=== PATIENT | male | born 1975 | race Caucasian/White ===

== ENCOUNTER 2017-06-16 15:23 | Observation (INO) ==
[2017-06-16] MEDS ORDERED: Ondansetron 4 MG/2 ML VIAL IVP PRN (19:34)
[2017-06-16] MEDS: 0.9 % Sodium Chloride 1,000 ML IVC SCH (20:09)
[2017-06-16] MEDS: *HR* OxyCODONE/APAP 5/325 TABLET PO PRN (20:09)
[2017-06-16] MEDS: *HR* FentaNYL (PF) 100 MCG/2 ML VIAL IVP PRN (22:15)
[2017-06-17] MEDS: *HR* OxyCODONE/APAP 5/325 TABLET PO PRN ×3 (03:05→20:02)
[2017-06-17] MEDS: *HR* FentaNYL (PF) 100 MCG/2 ML VIAL IVP PRN ×2 (08:55→13:52)
[2017-06-17] MEDS: 0.9 % Sodium Chloride 1,000 ML IVC SCH (08:59)
--- NOTE | 2017-06-17 09:17 | General Surg History&Physical ---
Date of Encounter: 06/17/17 Time of Encounter: 09:00 Assessment and Plan (1) Biliary dyskinesia Current Visit: Yes Status: Acute The assessment and plan as outlined above was discussed with the patient and/or family members who expressed understanding and agreement. All questions were answered. NPO IV fluids Supportive care and pain control Risks, benefits, alternatives, expected outcomes were reviewed with the patient is in agreement to proceed to the operating room for a laparoscopic cholecystectomy with cholangiogram with Dr. Solorzano in the next 24 hours. PPI therapy daily Incentive spirometer every 1 hour while awake Ambulate hallways TID with assistance DVT prophylaxis- EPCDs to bilateral lower extremities History of Present Illness Chief complaint: RUQ abdominal pain with vomiting HPI: Mr. Wang is a 41 year old male who reports right upper quadrant abdominal pain for approximately the last 2 weeks. The pain is aching and sharp in nature and radiates into his back. He admits to feeling bloated. He reports nausea and vomiting. He also admits to diarrhea without melena or hematochezia. The pain is aggravated by greasy and spicy foods. He states the pain is more intense after eating. He was seen and evaluated by Dr. Solorzano in the outpatient surgical office yesterday and has been admitted for further workup and treatment. The patient admits that he has been seen and evaluated at [facility] on 3 different occasions for the symptoms which have been ongoing since 06/09/2017. Past Med Surg Social Fam HX - Past Medical History Source: patient, old records reviewed Medical history: no medical history Psychiatric history: no psych history, PTSD - Past Surgical History Surgical History: appendectomy, other (Tonsillectomy and adenoidectomy, reconstruction surgery to his face due to an accident) - Social History Smoking Status: Current every day smoker Packs per day: 0.5 Smokeless Tobacco Status: No Alcohol use: none Drug use: none Current living situation: Home - Independent Activity Level: Independent ambulation - Family History Mother Living Status: Still Living Hx Family Cardiac Disorders: Yes (HTN) Father Living Status: Still Living Hx Family Cardiac Disorders: Yes (HTN) Medications and Allergies amLODIPine [Norvasc] 5 mg PO DAILY #30 tablet 04/02/15 [Rx] 3 Allergy/AdvReac Type Severity Reaction Status Date / Time aspirin [ASA] Allergy Seizure Verified 06/15/17 19:47 morphine Allergy Hives Verified 06/15/17 19:47 Review of Systems All systems PM: reviewed and no additional remarkable complaints except as stated (in the HPI) All systems PM: The remainder of the systems were reviewed and are negative General Surgery Exam Initial Vital Signs Temp Pulse Resp BP Pulse Ox 99.0 F 75 16 122/89 95 06/16/17 17:04 06/16/17 17:04 06/16/17 17:04 06/16/17 17:04 06/16/17 17:04 - General physical appearance well developed, well nourished, moderate pain - Eyes normal ocular movement - ENT normal mucosa, atraumatic, normocephalic - Neck trachea midline - Respiratory normal respiratory effort, clear to auscultation - Cardiovascular Cardiovascular exam: Present: RRR - Abdomen Abdomen general surgery: Present: bowel sounds present, soft, tender Abdominal Tenderness: Present: RUQ - Integumentary Integumentary general surgery: Present: warm and dry - Neurologic Present: CN 2-12 grossly intact - Musculoskeletal Present: normal gait, normal posture - Psychiatric Psychiatric general surgery: Present: appropriate, oriented to person, oriented to place, oriented to time, speech is normal, memory intact Results - Labs All other labs normal. - Attending Attestation For this encounter, I have reviewed the COMPONENT INSPECTOR or PA documentation, treatment plan, and medical decision making; and I have had face to face time with this patient.
[2017-06-17] MEDS ORDERED: Naloxone 0.4 MG/ML INJ IVP PRN ×2 (09:23→18:02)
[2017-06-17] MEDS ORDERED: Isovue-300 50 ML VIAL IVP ONE (15:33)
--- NOTE | 2017-06-17 15:42 | Anesthesia Evaluation PreOp ---
Date of Encounter: 06/17/17 Time of Encounter: 15:40 - Past History Planned Operation: Lap. cholecystectomy Cardiac History: Denies any Significant Hx Pulmonary History: Smoker NEUROLOGY STROKE PHYSICIAN History: Denies Any Significant HX Other Medical History: Denies Any Significant HX Anesthesia History: No Prior Anesthetic Complications, Past Anesthesia (Tonsils , Appy, Facial reconstruction) Alcohol Use: none Drug use: none Medications and Allergies No Known Home Drugs 06/17/17 [History] 3 Allergy/AdvReac Type Severity Reaction Status Date / Time aspirin [ASA] Allergy Seizure Verified 06/15/17 19:47 morphine Allergy Hives Verified 06/15/17 19:47 - Meds/Allergy Pre-op Review Medications Reviewed: Yes Allergies Reviewed: Yes Beta Blockers on Current Med List: No Anesthesia Exam O2 Sat Height 1.93 m Weight 93 kg BMI 25 Vital Signs/O2 Sat, Most Current Temp Pulse Resp BP Pulse Ox 98.7 F 58 14 124/80 94 06/17/17 15:29 06/17/17 15:29 06/17/17 15:29 06/17/17 15:29 06/17/17 15:29 NPO (# of Hours): >8 - HEENT Mallampati: I Teeth: Normal - Cardiac Rhythm: Regular - Pulmonary Breath Sounds: bilateral Clear Anesthesia Assess/Plan ASA Score: 2 Modified Gala Scale for Level of Consciousness: Cooperative, oriented, and tranquil Anesthetic Plan: General Monitoring Plan: Standard Monitors Recovery Plan: PACU Anes Supervising Prov Stmt: Patient informed and consented. Risks, benefits, and alternatives discussed. Patient wishes to proceed.
[2017-06-17] MEDS ORDERED: *HR* FentaNYL (PF) 100 MCG/2 ML VIAL ONE ×3 (15:43→16:50)
[2017-06-17] MEDS ORDERED: *HR* Propofol 200 MG/20 ML VIAL IVP ONE ×2 (15:43→16:51)
[2017-06-17] MEDS ORDERED: *HR* Midazolam HCl 2 MG/2 ML VIAL ONE (15:43)
[2017-06-17] MEDS ORDERED: Lidocaine -MPF 2% 2 ML VIAL ONE (15:47)
[2017-06-17] MEDS ORDERED: *HR* Rocuronium Bromide 50 MG/5 ML VIAL ONE (15:47)
[2017-06-17] MEDS ORDERED: *HR* Succinylcholine 200 MG/10 ML VIAL IVP ONE (15:47)
[2017-06-17] MEDS ORDERED: Ondansetron 4 MG/2 ML VIAL ONE (15:57)
[2017-06-17] MEDS ORDERED: Dexamethasone 4 MG/ML VIAL ONE (15:57)
[2017-06-17] MEDS ORDERED: Neostigmine Methylsulfate 3 MG/3 ML SYRINGE ONE (15:57)
[2017-06-17] MEDS ORDERED: CefOXitin 2,000 MG VIAL ONE (15:58)
[2017-06-17] MEDS ORDERED: *HR* Labetalol 20 MG/4 ML SYRINGE IVP PRN (16:00)
[2017-06-17] MEDS ORDERED: *HR* OxyCODONE Immed Rel 5 MG TABLET PO PRN ×2 (16:00→18:02)
[2017-06-17] MEDS ORDERED: *HR* FentaNYL (PF) 100 MCG/2 ML VIAL IVP PRN ×3 (16:00→18:02)
[2017-06-17] MEDS ORDERED: *HR* Promethazine 25 MG/ML VIAL IVP PRN ×2 (16:00→18:02)
[2017-06-17] MEDS ORDERED: cefOXitin 2,000 MG in D5% in Water (Mini-Bag+) 100 ML IVPB ONE (16:03)
[2017-06-17] MEDS ORDERED: cefOXitin 2,000 MG in Water for inj. (sterile) 10 ML IVP ONE ×2 (16:28→18:02)
[2017-06-17] MEDS ORDERED: EPHEDrine 50 MG/ML VIAL ONE (16:40)
[2017-06-17] MEDS ORDERED: cefOXitin 2,000 MG in Water for inj. (sterile) 20 ML 10 ML IVP ONE ×2 (17:00→18:02)
--- NOTE | 2017-06-17 17:14 | Operative Note ---
Date of procedure: 06/17/17 Pre-op diagnosis: Biliary dyskinesia Post-op diagnosis: same Procedure: Laparoscopic cholecystectomy with cholangiogram Anesthesia: GETA Surgeon: Terence Solorzano Was there an assistant professor of dietetics present: Yes Supervisor Process Testing: Emelina Byrnes Estimated blood loss (cc): 5 Specimen: GB Condition: stable Disposition: same day
[2017-06-17] MEDS ORDERED: *HR* Labetalol 100 MG/20 ML MDV IVP PRN (18:02)
[2017-06-17] MEDS ORDERED: Ondansetron 4 MG/2 ML VIAL IVP PRN (18:02)
[2017-06-17] MEDS ORDERED: 0.9 % Sodium Chloride 1,000 ML IVC SCH (18:02)
--- NOTE | 2017-06-17 18:18 | Anesthesia Evaluation Post Op ---
Date of Encounter: 06/17/17 Time of Encounter: 17:35 Notes: Patient's vital signs have been reviewed. Patient is stable postoperatively and has adequately recovered from anesthesia. Patient is determined to have stable airway patency and respiratory function including respiratory rate and oxygen saturation. Patient has a stable heart rate, blood pressure and adequate hydration. Patients mental status is acceptable. Patients temperature is appropriate. Pain and nausea are adequately controlled. - Discharge PostOp Status: Transfer Patient to floor
[2017-06-18] MEDS ORDERED: cefOXitin 2,000 MG in Water for inj. (sterile) 20 ML 10 ML IVP ONE
[2017-06-18] MEDS: *HR* OxyCODONE/APAP 5/325 TABLET PO PRN (04:58)
[2017-06-18 07:02] VITALS: BP 126/81
--- NOTE | 2017-06-18 08:23 | Discharge Summary ---
Orders not resulted at time of discharge: Pending orders 06/17/17 16:55 Surgical Pathology [PTH] Routine Date of Encounter: 06/18/17 Time of Encounter: 08:21 - Discharge Diagnosis (1) S/P cholecystectomy Priority: Primary Status: Acute (2) Biliary dyskinesia Priority: Primary Status: Acute General Surgery Exam Initial Vital Signs Temp Pulse Resp BP Pulse Ox 99.0 F 75 16 122/89 95 06/16/17 17:04 06/16/17 17:04 06/16/17 17:04 06/16/17 17:04 06/16/17 17:04 - General physical appearance well developed, well nourished, no distress - Eyes normal ocular movement - ENT normal mucosa - Neck trachea midline - Respiratory normal expansion, normal respiratory effort, clear to auscultation - Cardiovascular Cardiovascular exam: Present: RRR, no murmurs/rubs/gallops - Abdomen Abdomen general surgery: Present: bowel sounds present, soft, non tender. Absent: guarding, rebound - Incision Incision: Present: clean and dry, intact - Integumentary Integumentary general surgery: Present: warm and dry, no abnormal pigmentation - Neurologic Present: normal coordination, normal sensation - Musculoskeletal Present: normal posture - Psychiatric Psychiatric general surgery: Present: A&Ox3, appropriate, speech is normal, memory intact - Hospital Course Hospital course: Mr. Wang is a 41 year old male c PMHx of PTSD, and appendectomy who reported to [facility] c/o 2 weeks of RUQ pain. Patient was also having Nausea and vomiting at that time. Patient was evaluated by Dr. Solorzano in the outpatient surgical office and was admitted for further work up and treatment. Patient was taken to the OR yesterday for Robotic laproscopic Cholecystectomy and intra operative cholangiogram. Patient tolerated the procedure well. Intra operative cholangiogram was unremarkable. Patient discharged home in good condition. - Time Spent with Patient Total time spent providing and/or coordinating discharge services: Greater than 30 minutes - Discharge Medications Prescriptions: Ondansetron ODT [Zofran ODT] 4 mg SL Q6HR PRN #15 tab.rapdis PRN Reason: Nausea And Vomiting OxyCODONE/APAP 5/325 [Percocet 5/325 MG] 1 each PO Q6HR PRN 7 Days #28 tablet PRN Reason: Breakthrough Pain Docusate [Colace] 100 mg PO BID #30 capsule Ibuprofen 800 mg PO Q8H #42 tablet Home Medications: Docusate [Colace] 100 mg PO BID #30 capsule 06/18/17 [Rx] Ibuprofen 800 mg PO Q8H #42 tablet 06/18/17 [Rx] Ondansetron ODT [Zofran ODT] 4 mg SL Q6HR PRN #15 tab.rapdis 06/18/17 [Rx] OxyCODONE/APAP 5/325 [Percocet 5/325 MG] 1 each PO Q6HR PRN 7 Days #28 tablet [Rx] Allergies/Adverse Reactions: 3 Allergy/AdvReac Type Severity Reaction Status Date / Time aspirin [ASA] Allergy Seizure Verified 06/15/17 19:47 morphine Allergy Hives Verified 06/15/17 19:47 Date of admission: 06/16/17 15:26 Primary care physician: PCP NONE Discharging clinician: Dustin Whitehead Anticipated date of discharge: 06/18/17 Labs on day of discharge: Labs from last 24 hours 06/17/17 06/17/17 06/16/17 13:00 06:53 22:58 POC Glucose 85 84 86 - Impressions ITS Impressions Cholangiogram,Operative 06/17/17 00:00 IMPRESSION: Unremarkable intraoperative cholangiogram D/ / 06/17/2017 17:00:07 Chico Tong MD / ken Interpreting Provider: Chico Tong MD - Patient Status Disposition: Home, Self-Care Condition: Good Functional capacity at discharge: independent ambulation Overall status at discharge: patient is back to baseline - Discharge Instructions Follow Up With: NONE,PCP [Primary Care Provider] - Shireen Calvo DERRICK HELPER [Advanced Practice Nurse] - 06/29/17 2:15 pm (f/u gokul Fabian (Jeanine) 06/17/17) Additional Instructions: 1. No pushing, pulling, or lifting greater than 15 lbs for 2weeks. 2. You may shower beginning today, but no tub baths, soaking, or swimming for 2 weeks. 3. You may resume driving when you are off narcotics and are safe to react in a car. 4. Take ibuprofen every 8 hours for discomfort. If this does not relieve discomfort, you may take the as needed Percocet. Take narcotics as directed. Do not take more narcotics then directed and do not share your narcotics with any other person. Do not drink alcohol while on narcotics. 5. Take stool softeners (Colace) or a water based laxative (Miralax) while taking narcotics. You may hold for loose stools. 6. Report any fevers greater than 100.5F, increase abdominal discomfort, drainage that looks like pus, increased redness or pain at the surgical site, or any vomiting. 7. Report any pain in the calves, shortness of breath, or rapid heartbeat. 8. Follow-up in the office as directed. 9. If you were prescribed antibiotics, do not stop them without talking to your provider. - Diet and Activity Activity: resume usual activities as tolerated Diet: advance to your usual diet
== END 2017-06-18 10:27 | disposition home or self-care (01) ==
LOC: 3ANU
PROVIDERS: ADMIT Surgery; ATTEND Surgery